=== PATIENT | male | born 1970 | race Caucasian/White ===

== ENCOUNTER 2016-10-10 13:30 | Inpatient (IN) | payer MEDICARE, MEDICAID ==
[~2016-10-10] VITALS: Ht 185.4 cm; Wt 102.1 kg
--- NOTE | 2016-10-10 15:15 | NUR ---
PSYCHIATRIC SPECIALISTSTOCKROOM INVENTORY CLERK NOTE PATIENT IS ALERT AND ORIENTED x4. NO CHEST PAIN AT THIS TIME. NO SOB OR DISTRESS NOTED. CALL LIGHT WITHIN REACH. SAFETY MEASURES IMPLEMENTED. SMOKING CESSATION, STROKE, AND HEART ATTACK TEACHING INITIATED. IV INTACT AND PATENT NO REDNESS OR SWELLING NOTED, RIGHT AC 20G. SKIN INTACT, NO PRESENT SKIN ISSUES. ABLE TO COMMUNICATE NEEDS. AMBULATORY. ON CARDIAC DIET. AWAITING ORDERS FROM VIKTORIA LAYTON NP. WILL CONTINUE TO MONITOR
[2016-10-10 16:00] VITALS: BP 140/99
[2016-10-10] MEDS ORDERED: MAG HYDROX/AL HYDROX/SIMETH 30 ML UDC PO PRN (16:00)
[2016-10-10] MEDS ORDERED: Z GUARD REMEDY 2 OZ OINT TP PRN (16:00)
[2016-10-10] MEDS ORDERED: HYDROCODONE/APAP 5/325MG 1 EACH TABLET PO PRN (16:00)
[2016-10-10] MEDS ORDERED: MORPHINE SULFATE INJ 2 MG/ML DISP.SYRIN IV PRN (16:00)
[2016-10-10] MEDS ORDERED: ONDANSETRON HCL/PF 4 MG/2 ML VIAL IVP PRN (16:00)
[2016-10-10] MEDS ORDERED: MAGNESIUM HYDROXIDE 30 ML UDC PO PRN (16:00)
[2016-10-10] MEDS: LORAZEPAM INJ 2 MG/ML VIAL IV PRN ×4 (16:29→23:14)
[2016-10-10] MEDS ORDERED: CLONIDINE HCL 0.1 MG TABLET PO SCH (17:00)
[2016-10-10] MEDS ORDERED: hydrALAZINE HCL 25 MG TABLET PO PRN (17:00)
[2016-10-10 17:28] LABS: BASOPHILS % (AUTO) 0.5 % (0.0-2.0); EOSINOPHILS # (AUTO) 0.1 /CMM (0.0-0.7); EOSINOPHILS % (AUTO) 1.2 % (0.0-6.0); HEMATOCRIT 48 % (39-51); HEMOGLOBIN 16.3 g/dL (13.5-17.5); LYMPHOCYTES # (AUTO) 1.7 /CMM (0.8-4.8); LYMPHOCYTES % (AUTO) 21.3 % (20.0-44.0); MEAN CORPUSCULAR HEMOGLOBIN 31 PG (26.0-33.0); MEAN CORPUSCULAR HGB CONC 34 g/dl (31.0-36.0); MEAN CORPUSCULAR VOLUME 91 fL (80-96); MONOCYTES # (AUTO) 0.6 /CMM (0.1-1.30); MONOCYTES % (AUTO) 7.7 % (2.0-12.0); NEUTROPHILS # (AUTO) 5.4 /CMM (1.8-8.9); NEUTROPHILS % (AUTO) 69.3 % (43.0-81.0); PLATELET COUNT (AUTO) 286 /CMM (150-450); RDW COEFFICIENT OF VARIATION 13.6 (11.5-15.0); RED BLOOD CELL COUNT(AUTO) 5.27 MIL/uL (4.5-6.0); WHITE BLOOD COUNT (AUTO) 7.9 K/uL (4.3-11.0)
[2016-10-10 18:02] LABS: ALANINE AMINOTRANSFERASE 35 U/L (12-78); ALBUMIN 3.8 g/dL (3.4-5.0); ALKALINE PHOSPHATASE 82 U/L (46-116); ASPARTATE AMINOTRANSFERASE 24 U/L (15-37); CALCIUM, SERUM 8.7 mg/dL (8.5-10.1); CARBON DIOXIDE 25 mmol/L (21-32); CHLORIDE 103 mmol/L (98-107); CREATININE 1.3 mg/dL (0.6-1.3); GFR 60 mL/min (>60); GLUCOSE 111 mg/dL (74-106); MAGNESIUM 2.4 mg/dL (1.8-2.4); POTASSIUM 4.1 mmol/L (3.5-5.1); SODIUM SERUM 138 mmol/L (136-145); TOTAL PROTEIN, SERUM 7.8 g/dL (6.4-8.2); UREA NITROGEN, BLOOD 16 mg/dL (7-18)
[2016-10-10 18:09] LABS: TROPONIN I < 0.017 ng/mL (0.00-0.056)
--- NOTE | 2016-10-10 18:23 | NUR ---
FRAME AND SCRAP CRUSHER CLOSING NOTE PATIENT IS ALERT AND ORIENTED x4. NO PAIN AT THIS TIME. NO SOB OR DISTRESS NOTED. ALL DUE MEDICATIONS GIVEN ORDERED. CALL LIGHT WITHIN AT ALL TIMES. SAFETY MEASURES IMPLEMENTED. ALL NURSING CARE NEEDS ATTENDED TO. IV INTACT AND PATENT NO REDNESS OR SWELLING. WILL ENDORSE TO MEDICARE BILLER NURSE
[2016-10-10] MEDS: CLONIDINE HCL 0.1 MG TABLET PO SCH (18:42)
[2016-10-10 20:00] VITALS: BP 155/107
--- NOTE | 2016-10-10 20:05 | NUR ---
RECEIVED PATIENT IN BED, ALERT AND ORIENTED X4, CALM, NO SOB, NO RESPIRATORY DISTRESS, DENIES ANY PAIN AT THIS TIME, NO CHEST PAIN, ON TELE MONITORING WITH READING OF SINUS TACHYCARDIA, KEPT SAFE AND COMFORTABLE, CALL LIGHT WITHIN REACH, FAMILY AT THE BEDSIDE.
[2016-10-10 20:31] VITALS: BP 155/107
[2016-10-10 20:52] VITALS: BP 142/92
--- NOTE | 2016-10-10 20:53 | NUR ---
BLOOD PRESSURE TAKEN, SEE V/S SPREADHEET
--- NOTE | 2016-10-10 22:29 | NUR ---
NEW ORDER OF MIRAPEX 0.125 MG PO TID FOR RESTLESS LEGS SYNDROME, MD DECLINE TO ORDER RHONA, PATIENT ALREADY ON ATIVAN 1MG IVP Q2HRS FOR ANXIETY, NEW ORDER NOTED AND CARRIED OUT.
[2016-10-10] MEDS ORDERED: PRAMIPEXOLE DI-HCL 0.25 MG TABLET ONE (22:32)
[2016-10-10] MEDS: PRAMIPEXOLE DI-HCL 0.25 MG TABLET PO SCH (22:37)
--- NOTE | 2016-10-10 22:40 | NUR ---
PATIENT REQUESTED MIRAPEX FOR RESTLESS LEGS SYNDROME, ON ASSESSMENT PATIENT UNABLE TO STOP MOVING BILATERAL LEGS
[2016-10-11] VITALS (7 sets, daily range): BP systolic 113–163; BP diastolic 73–99
[2016-10-11] MEDS: ACETAMINOPHEN 325 MG TABLET PO PRN ×2 (00:35→21:10)
--- NOTE | 2016-10-11 00:37 | NUR ---
GIVEN TYLENOL 650 MG PO FOR LEFT SHOULDER PAIN OF 4/10
--- NOTE | 2016-10-11 00:41 | NUR ---
PATIENT IS RESTLESS, REQUESTING AMBIEN, EXPLAINED TO PATIENT ALREADY INFORMED DR. SAM. SNYDER DECLINED AMBIEN ORDER.
[2016-10-11] MEDS: LORAZEPAM INJ 2 MG/ML VIAL IV PRN ×5 (01:23→18:58)
--- NOTE | 2016-10-11 01:44 | NUR ---
PATIENT IS RESTLESS, ASKING TO SHOWER, EXPLAINED IT IS NOT ALLOWED, PATIENT REMOVED IV LINE TO LEFT AC, STARTED NEW IV LINE TO LEFT WRIST WITH #22 GAUGE. PATIENT UNABLE TO RECALL MEDICATION NAME (ATIVAN) BEING GIVEN. WILL CONTINUE TO MONITOR. Addendum: 10/11/16 at 0151 by LANRE BROWNE RN CORRECTION TO IV SITE: RIGHT AC AND RIGHT WRIST
--- NOTE | 2016-10-11 06:51 | NUR ---
PATIENT IN BED, RESTING, AROUSEABLE BY VOICE AND TOUCH, NO SOB, NO DISTRESS, WITH EPISODES OF RESTLESSNESS. GIVEN ATIVAN 1MG Q2HRS ROUND THE CLOCK. UNABLE TO SLEEP. NO COMPLAIN OF PAIN. GIVEN HYDRALAZINE 25 MG PO PRN FOR ELEVATED BP, NEEDS ATTENDED, CALL LIGHT WITHIN REACH.
[2016-10-11 06:54] LABS: BASOPHILS % (AUTO) 0.7 % (0.0-2.0); EOSINOPHILS # (AUTO) 0.2 /CMM (0.0-0.7); EOSINOPHILS % (AUTO) 2.8 % (0.0-6.0); HEMATOCRIT 46 % (39-51); HEMOGLOBIN 15.7 g/dL (13.5-17.5); LYMPHOCYTES # (AUTO) 1.7 /CMM (0.8-4.8); LYMPHOCYTES % (AUTO) 22.9 % (20.0-44.0); MEAN CORPUSCULAR HEMOGLOBIN 31 PG (26.0-33.0); MEAN CORPUSCULAR HGB CONC 34 g/dl (31.0-36.0); MEAN CORPUSCULAR VOLUME 91 fL (80-96); MONOCYTES # (AUTO) 0.6 /CMM (0.1-1.30); MONOCYTES % (AUTO) 7.8 % (2.0-12.0); NEUTROPHILS # (AUTO) 4.9 /CMM (1.8-8.9); NEUTROPHILS % (AUTO) 65.8 % (43.0-81.0); PLATELET COUNT (AUTO) 276 /CMM (150-450); RED BLOOD CELL COUNT(AUTO) 5.02 MIL/uL (4.5-6.0); WHITE BLOOD COUNT (AUTO) 7.4 K/uL (4.3-11.0)
--- NOTE | 2016-10-11 07:05 | NUR ---
EARLY CHILDHOOD SERVICES COORDINATOR INITIAL NOTES REPORT RECEIVED AT THE BEDSIDE. PATIENT IS RESTING COMFORTABLY IN BED. NO SOB OR DISTRESS NOTED AT THIS TIME. PATIENT DENIES PAIN. HEART RATE IS SR AT 90. BED IN A LOW POSITION, CALL LIGHT WITHIN PATIENT REACH. WILL CONTINUE TO MONITOR.
[2016-10-11 07:07] LABS: CALCIUM, SERUM 8.9 mg/dL (8.5-10.1); CREATININE 1.2 mg/dL (0.6-1.3); MAGNESIUM 2.5 mg/dL (1.8-2.4); PHOSPHORUS 2.8 mg/dL (2.5-4.9); POTASSIUM 4.8 mmol/L (3.5-5.1); THYROID STIMULATING HORMONE 2.144 uIU/mL (0.358-3.74)
[2016-10-11] MEDS: AMLODIPINE BESYLATE 5 MG TABLET PO SCH (08:07)
[2016-10-11] MEDS: CLONIDINE HCL 0.1 MG TABLET PO SCH ×2 (08:07→16:08)
[2016-10-11] MEDS: PANTOPRAZOLE 40 MG TABLET.DR PO SCH (08:07)
[2016-10-11] MEDS: BENAZEPRIL HCL 10 MG TABLET PO SCH (08:07)
[2016-10-11] MEDS: ASPIRIN 81 MG TAB.CHEW PO SCH (08:07)
[2016-10-11] MEDS: FOLIC ACID 1 MG TABLET PO SCH (09:30)
[2016-10-11] MEDS: THIAMINE HCL 100 MG TABLET PO SCH (09:30)
[2016-10-11] MEDS: PRAMIPEXOLE DI-HCL 0.25 MG TABLET PO SCH ×3 (09:30→16:08)
--- NOTE | 2016-10-11 17:15 | NUR ---
PROTECTIVE SIGNAL OPERATOR NOTES RECEIVED PT FROM FRITZ COLLADO, PT AWAKE, SITTING IN BED, ALERT AND ORIENTED, NO COMPLAINT OF PAIN, BREATHING PATTERN NORMAL AND NOT LABORED, CALL LIGHT WITHIN REACH.
--- NOTE | 2016-10-11 17:31 | NUR ---
roustabout crew CLOSING NOTE NO SIGNIFICANT CHANGES IN PATIENT CONDITION THROUGHOUT THE SHIFT. NO SOB OR DISTRESS NOTED AT THIS TIME. PATIENT DENIES PAIN. HEART RATE SR ON MONITOR. BED IN A LOW POSITION, CALL LIGHT WITHIN PATIENT REACH. ENDORSED FOR SALONI.
--- NOTE | 2016-10-11 18:30 | NUR ---
RN MS NOTES PT IN BED, AWAKE, ALERT AND ORIENTED, WATCHING TV, NO COMPLAINT OF CHEST PAIN, RESPIRATIONS NORMAL AND NOT LABORED, CALL LIGHT WITHIN REACH, NEEDS ATTENDED.
--- NOTE | 2016-10-11 19:40 | NUR ---
MS RN INITIAL NOTES: RECEIVED REPORT FROM PRAENETH COLLADO. PT IN BED, AWAKE, A/O X3 ON ROOM AIR RESPIRATION EVEN AND UNLABORED, HAS RIGHT WRIST IV G 20 PATENT AND FLUSHING WELL, ON HL. SAFETY PRECAUTIONS FOR FALL INITIATED CALL LIGHT IN REACH, WILL CONTINUE TO MONITOR
--- NOTE | 2016-10-11 21:10 | NUR ---
MS RN NOTES: PT REQUESTED FOR TYLENOL, HE STATED HE HAS HEADACHE 3/ , PRN TYLENOL 650MG TAB PO ADMINISTERED TO THE PT
--- NOTE | 2016-10-11 22:14 | NUR ---
MS RN NOTES: PT C/O 12/29 GENERALIZED PAIN REQUESTING FOR MORPHINE, PRN MORPHINE 2MG IVP ADMINISTERED TO THE PT AT THIS TIME, EDUCATE PT REGARDING MEDICATION SIDE EFFECT, WILL CONTINUE TO MONITOR AND REASSESS
--- NOTE | 2016-10-12 00:30 | NUR ---
AM CARE: PT REQUESTED TO TAKE A SHOWER, IV ACCESS COVERED WITH PLASTIC, BUD CASTRO V ASSISTED PT TO THE SHOWER ROOM
--- NOTE | 2016-10-12 03:58 | NUR ---
MS RN NOTES: SEEN PT SLEEPING AT THIS TIME, NO SOB NOTED, WILL CONTINUE TO MONITOR
[2016-10-12 07:01] LABS: BASOPHILS % (AUTO) 0.8 % (0.0-2.0); EOSINOPHILS # (AUTO) 0.3 /CMM (0.0-0.7); EOSINOPHILS % (AUTO) 4.7 % (0.0-6.0); HEMATOCRIT 44 % (39-51); HEMOGLOBIN 15.4 g/dL (13.5-17.5); LYMPHOCYTES # (AUTO) 1.8 /CMM (0.8-4.8); LYMPHOCYTES % (AUTO) 29.6 % (20.0-44.0); MEAN CORPUSCULAR HEMOGLOBIN 31 PG (26.0-33.0); MEAN CORPUSCULAR HGB CONC 35 g/dl (31.0-36.0); MEAN CORPUSCULAR VOLUME 90 fL (80-96); MONOCYTES # (AUTO) 0.6 /CMM (0.1-1.30); MONOCYTES % (AUTO) 8.9 % (2.0-12.0); NEUTROPHILS # (AUTO) 3.5 /CMM (1.8-8.9); PLATELET COUNT (AUTO) 262 /CMM (150-450); RDW COEFFICIENT OF VARIATION 13.8 (11.5-15.0); RED BLOOD CELL COUNT(AUTO) 4.91 MIL/uL (4.5-6.0); WHITE BLOOD COUNT (AUTO) 6.2 K/uL (4.3-11.0)
--- NOTE | 2016-10-12 07:03 | NUR ---
MS RN CLOSING NOTES: PT IN BED, AWAKE, REMAINS A/O X3, RESPIRATION EVEN AND UNLABORED, DENIES ANY PAIN OR DISCOMFORT AT THIS TIME. RIGHT WRIST IV ACCESS REMAINS PATENT AND FLUSHING WELL, ON HL. VS REMAINS STABLE, NEEDS ATTENDED. WILL ENDORSE TO DAY RN FOR SALONI.
[2016-10-12 07:20] LABS: CALCIUM, SERUM 8.9 mg/dL (8.5-10.1); CREATININE 1.3 mg/dL (0.6-1.3); POTASSIUM 3.9 mmol/L (3.5-5.1)
[2016-10-12 08:00] VITALS: BP 132/67
[2016-10-12 08:12] VITALS: BP 124/75
[2016-10-12] MEDS: PANTOPRAZOLE 40 MG TABLET.DR PO SCH (09:09)
[2016-10-12] MEDS: CLONIDINE HCL 0.1 MG TABLET PO SCH ×2 (09:10→17:08)
[2016-10-12] MEDS: ASPIRIN 81 MG TAB.CHEW PO SCH (09:10)
[2016-10-12] MEDS: AMLODIPINE BESYLATE 5 MG TABLET PO SCH (09:11)
[2016-10-12] MEDS: THIAMINE HCL 100 MG TABLET PO SCH (09:11)
[2016-10-12] MEDS: BENAZEPRIL HCL 10 MG TABLET PO SCH (09:11)
[2016-10-12] MEDS: FOLIC ACID 1 MG TABLET PO SCH (09:12)
[2016-10-12] MEDS: PRAMIPEXOLE DI-HCL 0.25 MG TABLET PO SCH ×3 (09:18→17:08)
--- NOTE | 2016-10-12 09:27 | NUR ---
RN Notes Resting well with no complain at this time. No s/s of alcohol withdrawal, no resting tremor or agitation. On RA saturating at 97% with no SOB. Both lugs clear tyo auscultate. With IV access on right wrist gg 20 patent and intact.
[2016-10-12 16:00] VITALS: BP 115/67
[2016-10-12 16:59] VITALS: BP 115/67
--- NOTE | 2016-10-12 19:20 | NUR ---
MS/SORORITY MOTHER; RECEIVED PT AT THE BATHROOM SINK WASHING HIS HANDS. DENIES ANY PAIN. BREATHING NON LABORED AND EVEN. PT INSTRUCTED TO CALL FOR HELP . BED ON LOWER POSITION AND LOCKED FOR SAFETY. UPPER PART ON BED SIDE RAILS ARE UP FOR SAFETY. WILL CONTINUE TO MONITOR. CALL LIGHT WITHIN REACH.
[2016-10-12 20:00] VITALS: BP 102/70
--- NOTE | 2016-10-12 22:00 | NUR ---
MS/SUPERVISOR PUBLICATIONS PRODUCTION; MOM 30 ML PO HS PRN GIVEN ORDERED AND PT. REQUESTED. PT INSTRUCTED TO LET ME KNOW IF HE HAS A BM . ALSO C/O SOME PAIN ON LT RIB AREA. TYLENOL 650 MG PO Q6 PRN GIVEN. WILL MONITOR.
[2016-10-12] MEDS: ACETAMINOPHEN 325 MG TABLET PO PRN (22:21)
--- NOTE | 2016-10-13 01:05 | NUR ---
MS/CONGRESSIONAL AIDE; PT CALLED I CHECKED THE PT. AND HE SAID TO RE CHECK HIS BP BECAUSE HE FELT A LITTLE BIT DIZZY. LA BP 113/74 , P 65 , O2 SAT ON RA 97 %. PT AWARE OF HIS BP. HE SAID HE FELT BIT NAUSEOUS. I OFFERED HIM ZOFRAN IV FOR NAUSEA ORDERED AND HE YES. SO I INFORMED THE RN PT WANTS ZOFRAN. I INFORMED THE PT RN IS COMING FOR THE MED FOR NAUSEA. WILL CONTINUE TO MONITOR.
[2016-10-13 01:10] VITALS: BP 113/74
--- NOTE | 2016-10-13 02:15 | NUR ---
MS/CMA; PT SLEEPING AT THIS TIME. BREATHING NON LABORED AND EVEN. WILL CONTINUE TO MONITOR.
--- NOTE | 2016-10-13 04:00 | NUR ---
MS/SUPERVISORY TRAINING SPECIALIST; PT IN BED ASLEEP. BREATHING NON LABORED AND EVEN. CONTINUE TO MONITOR.
--- NOTE | 2016-10-13 06:31 | NUR ---
MS/OPERATING ROOM AIDE; SLEPT FAIRLY. NO PAIN AT THIS TIME. BREATHING NON LABORED. ALERT AND ORIENTED . CONTINUE TO MONITOR. CALL LIGHT WITHIN REACH.
--- NOTE | 2016-10-13 07:13 | NUR ---
RN INITIAL NOTES: RECEIVED PATIENT ASLEEP IN BED, EASILY AWAKENS. A/O X3, NO C/O PAIN OR DISCOMFORTS AT THIS TIME. ON ROOM AIR, BREATHING UNLABORED. IV ACCESS ON RIGHT WRIST G #20 INTACT AND PATENT. .CALL LIGHT WITH IN REACH OF PT. BED LOW AND LOCKED. SAFETY PRECAUTIONS MAINTAINED. WILL CONTINUE TO MONITOR ACCORDINGLY.
[2016-10-13 08:00] VITALS: BP 110/81
[2016-10-13] MEDS: ASPIRIN 81 MG TAB.CHEW PO SCH (08:09)
[2016-10-13] MEDS: PANTOPRAZOLE 40 MG TABLET.DR PO SCH (08:09)
[2016-10-13] MEDS: FOLIC ACID 1 MG TABLET PO SCH (08:09)
[2016-10-13] MEDS: PRAMIPEXOLE DI-HCL 0.25 MG TABLET PO SCH (08:11)
[2016-10-13] MEDS: THIAMINE HCL 100 MG TABLET PO SCH (08:11)
[2016-10-13] MEDS: BENAZEPRIL HCL 10 MG TABLET PO SCH (08:11)
[2016-10-13 08:12] VITALS: BP 110/72
[2016-10-13] MEDS: AMLODIPINE BESYLATE 5 MG TABLET PO SCH (08:12)
[2016-10-13] MEDS: CLONIDINE HCL 0.1 MG TABLET PO SCH (08:12)
--- NOTE | 2016-10-13 12:39 | NUR ---
RN DISCHARGED NOTES PATIENT DISCHARGE HOME IN STABLE CONDITION. ALERT AND ORIENTED X4, NO C/O PAIN OR SIGNS OF DISTRESS DURING DISCHARGE. HE LEFT THE UNIT AMBULATORY WITH CANE ACCOMPANIED BY COLLAR STAY FUSER TENDER TO A WAITING TAXI IN FRONT OF THE LOBBY. V/S CHECKED AND RECORDED. SKIN IS INTACT ORIGINAL PRESCRIPTION GIVEN. HEALTH TEACHINGS GIVEN AND VERBALIZED UNDERSTANDING. BELONGINGS CHECKED, COUNTED AND FILED ON CHART. MD AND CHARGE NURSE AWARE OF DISCHARGE.
== END 2016-10-13 12:00 | disposition home or self-care (01) | DRG 206 ==
LOC: TELE 14:57 → MED 10-11 19:56
PROVIDERS: ADMIT Contractor; ATTEND Contractor
DX: M94.0 Chondrocostal junction syndrome [Tietze] (principal); F10.230 Alcohol dependence with withdrawal, uncomplicated; Z96.652 Presence of left artificial knee joint; Z82.49 Family history of ischemic heart disease and other diseases of the circulatory system; Z83.3 Family history of diabetes mellitus; Z82.0 Family history of epilepsy and other diseases of the nervous system; F15.90 Other stimulant use, unspecified, uncomplicated; Y90.9 Presence of alcohol in blood, level not specified; I10 Essential (primary) hypertension; R00.0 Tachycardia, unspecified; F13.90 Sedative, hypnotic, or anxiolytic use, unspecified, uncomplicated; K21.9 Gastro-esophageal reflux disease without esophagitis
CPT/HCPCS: 36415; 71010-TC; 80048-TC; 80053-TC; 80061-TC; 83735-TC; 84100-TC; 84443-TC; 84484-TC; 85025-TC; 87081-TC; 93307-TC; J2060; J2270; J2405; Z7610